=== PATIENT | male | born 1985 | race Caucasian/White ===

== ENCOUNTER 2018-12-05 14:51 | Emergency (ER) | payer OTHER ==
--- NOTE | 2018-12-05 15:05 | ERPHSYRPT ---
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 SUSTAINED SMALL INNER LIP LACERATION AND 1.5 CM LOWER LIP LAC OUTER. LAST TDAP? NO LOC. NO CP/SOB/N/V/FEVER/CHILLS/ DYSURIA/HEMATURIA PMHX DENIES PSHX DENIES MEDS REVIEWED ALL NKDA + TOB CHEW + ETOH OCC DENIES ILLICITS FHX NON CONTRIB EMPLOYED Allergies/Adverse Reactions: No Known Drug Allergies Allergy (Unverified 12/05/18 15:12) Home Medications: No Reportable Medications [No Reported Medications] 12/05/18 [History] - Review of Systems Constitutional: No Symptoms, No Fever, No Chills, No Fatigue, No Lethargy, No Malaise, No Night Sweats, No Weakness, No Weight Loss Eyes: No Symptoms, No Discharge, No Eye Pain, No Eye Redness, No Itchy, No Photophobia, No Tearing, No Vision Changes, No Double Vision, No Foreign Body Sensation Ears, Nose, & Throat: No Symptoms, No Ear Pain, No Ear Discharge, No Hearing Changes, No Tinnitus, No Nose Congestion, No Nose Discharge, No Epistaxis, No Mouth Pain, No Mouth Swelling, No Throat Pain, No Throat Swelling, No Hoarse, No Painful Swallowing, No Stridor Respiratory: No Symptoms, No Cough, No Cyanosis, No Dyspnea, No Dyspnea on Exertion (CRUZ), No Stridor, No Wheezing Cardiac: No Symptoms, No Chest Pain, No Edema, No Palpitations, No Syncope, No Orthopnea Abdominal/Gastrointestinal: No Symptoms, No Abdominal Pain, No Nausea, No Vomiting, No Diarrhea, No Constipation, No Hematemesis, No Hematochezia, No Melena, No Dysphagia, No Appetite Changes Genitourinary Symptoms: No Symptoms, No Dysuria, No Frequency, No Hematuria, No Hesitancy, No Incontinence, No Urgency, No Urinary Retention, No Flank Pain Musculoskeletal: No Symptoms, No Arthralgias, No Back Pain, No Neck Pain, No Deformity, No Fall, No Injury, No Joint Redness, No Joint Pain, No Joint Swelling, No Myalgias Skin: No Symptoms, Other (LACERATION), No Cellulitis, No Decubiti, No Induration , No Pruritis, No Rash, No Skin Lesions, No Dryness Neurological: No Symptoms, No Dizziness, No Focal Weakness, No Gait Changes, No Headache, No Irritability, No Lethargy, No Paralysis, No Parasthesia, No Seizure , No Sensory Changes, No Speech Changes, No Tics, No Tremors, No Vertigo Psychological: No Symptoms, No Alcohol Abuse, No Drug Abuse, No Anxiety, No Depression, No Suicidal Ideations, No Homicidal Ideations, No Emotional Lability , No Hallucinations, No Memory Loss, No Mood Changes Endocrine: No Symptoms, No Polyuria, No Polydipsia, No Hair Changes, No Cold Intolerance, No Excessive Sweating, No Goiter Hematologic/Lymphatic: No Symptoms, No Anemia, No Blood Clots, No Easy Bleeding , No Gum Bleeding, No Easy Bruising, No Adenopathy Immunological/Allergic: No Symptoms All Other Systems: Reviewed and Negative - Physical Exam General Appearance: no apparent distress, alert Eye Exam: PERRL/EOMI, eyes nml inspection, other (fundi normal adelaide), No scleral icterus, No pale conjunctivae, No photophobia, No EOM palsy/anisocoria Ears, Nose, Throat Exam: normal ENT inspection, TMs normal, pharynx normal, TM abnormal (L), other (uvula midline, floor of mouth soft LOWER LIP 0.25 CM INNER LAC, OUTER 1.5 CM LAC SUPERFICIAL LOWER LIP DOES NOT CROSS ABY BORDER), No moist mucous membranes, No dry mucous membranes, No TM abnormal (R), No pharyngeal erythema, No tonsillar exudate Neck Exam: normal inspection, non-tender, supple, full range of motion, No meningismus, No mass, No Brudzinski, No Kernig's, No carotid bruit, No JVD, No limited range of motion, No lymphadenopathy, No midline tenderness, No thyromegaly Respiratory Exam: normal breath sounds, lungs clear, airway intact, No chest tenderness, No respiratory distress, No diminished breath sounds, No accessory muscle use, No prolonged expirations, No crackles/rales, No rhonchi, No wheezing , No stridor, No pleural rub Cardiovascular Exam: regular rate/rhythm, normal heart sounds, normal peripheral pulses, capillary refill <2 sec, No murmur, No friction rub, No gallop, No tachycardia, No bradycardia, No irregular, No capillary refill 2-3 sec, No capillary refill >3 sec, No edema, No pulse deficit Gastrointestinal/Abdomen Exam: soft, normal bowel sounds, No tenderness, No distention, No mass, No guarding, No ecchymosis, No pulsatile mass, No rebound, No hernia, No hepatomegaly, No organomegaly, No splenomegaly, No bruit Male Genitalia Exam: normal genitalia Rectal Exam: deferred Back Exam: normal inspection, normal range of motion, other (neg slr adelaide, no sacral anesthesia, dtr 2/4 adelaide patella), No CVA tenderness, No vertebral tenderness, No rash, No decreased range of motion, No muscle spasm, No point tenderness Extremity Exam: normal inspection, normal range of motion, pelvis stable, No amputations, No contusions, No calf tenderness, No deformities, No lacerations, No parasthesia, No paralysis, No inflammation, No joint swelling, No limited range of motion, No pedal edema, No swelling, No tenderness Neurologic Exam: alert, oriented x 3, cooperative, 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, normal mood/affect, nml cerebellar function, nml station & gait, sensation nml, No motor deficits, No sensory deficit, No disoriented, No confusion, No agitation, No uncooperative, No intoxicated appearance, No depressed mood/affect , No motor weakness, No facial droop, No slurred speech, No aphasia, No dysarthria, No abnormal gait, No abnormal cerebellar tests, No abnormal humanities professor II- XII, No EOM palsy Skin Exam: normal color, warm, dry, No rash, No petechiae, No jaundice, No abrasion, No cyanosis, No diaphoresis, No decubitus, No embolic lesions, No ecchymosis, No jaundice, No laceration, No mottled, No pale Lymphatic Exam: No adenopathy SpO2 Interpretation: normal O2 Delivery: Room Air - Course Nursing assessment & vital signs reviewed: Yes - Progress Progress: unchanged Progress Note: 12/05/18 15:13 FINDINGS REVIEWED WITH PT. WILL UPDATE TDAP OFFERED SUTURE LOWER OUTER LIP PT DECLINES UNDERSTANDS RISK/BENEFITS IS AAOX3 COMPETENT TO MAKE A DECISION ALL QUESTIONS ANSWERED TO HIS SATISAFCATION WOUND CARE DW PT Counseled pt/family regarding: drug and/or alcohol abuse, lab results, diagnosis , need for follow-up, rad results, smoking cessation - Departure Departure Disposition: Home Clinical Impression: Laceration of lip Condition: Good Critical Care Time: No Instructions: Wound Care (DC) Additional Instructions: TO ER IF FEVER, REDNESS, SWELLING PUS FROM WOUND KEEP WOUND CLEAN WITH SOAP AND WATER GARGLE CHEW ON OPPOSITE SIDE BACITRACIN TO OUTER WOUND TWICE DAILY WOUND CHECK IN 2 DAYS YOU WERE OFFERED SUTURES FOR LOWER LIP BUT YOU DECLINED AFTER WE DISCUSSED RISKS AND BENEFITS
[2018-12-05] MEDS ORDERED: Adacel Vial IM ONE ×2 (15:10→15:20)
[2018-12-05 15:14] VITALS: PULSE 90; O2SAT 99
[2018-12-05] MEDS ORDERED: BACIGUENT PACKET TP ONE (15:14)
[2018-12-05] MEDS ORDERED: BACIGUENT PACKET ONE (15:19)
== END 2018-12-05 15:34 | disposition home or self-care (01) ==
LOC: ED 14:51
DX: S01.511A Laceration without foreign body of lip, initial encounter (principal); K13.1 Cheek and lip biting
CPT/HCPCS: 90471; 90715; 99283; A9270-GY

== ENCOUNTER 2023-08-20 18:55 | Emergency (ER) | payer BC, OTHER ==
[2023-08-20 19:37] VITALS: TEMP 97.8
--- NOTE | 2023-08-20 19:37 | ERPHSYRPT ---
- History of Present Illness Time Seen by Provider: 08/20/23 19:36 Historian: patient Exam Limitations: no limitations Physician History: This is a 38-year-old white male patient who takes no medications chronically and has no known drug allergies and presents with relatively cash onset of left lower quadrant abdominal pain and left flank pain at 8 AM this morning. T hroughout the day the pain was intermittently worse. Now, the patient has significant pain in the same areas. Patient states the pain is better when he is standing up and moving around. Patient was diaphoretic earlier. He has never had anything like this before. He denies chest pain. He denies shortness of breath. Patient's spouse stated that he did have flulike symptoms approximately 4 to 5 days ago. He has not had any nausea vomiting or diarrhea. Timing/Duration: today Activities at Onset: none Quality: sharpness, stabbing Abdominal Pain Onset Location: LLQ, flank (Left side) Severity of Pain-Max: moderate Severity of Pain-Current: moderate Modifying Factors: Improves With: walking (Improves), other (Sitting worsens) Associated Symptoms: diaphoresis (Here today), No testicular pain Previous symptoms: no prior history, no recent treatment Allergies/Adverse Reactions: No Known Drug Allergies Allergy (Verified 08/20/23 19:37) Hx Tetanus, Diphtheria Vaccination/Date Given: No Hx Influenza Vaccination/Date Given: No Hx Pneumococcal Vaccination/Date Given: No Travel Risk - International Travel Have you traveled outside of the country in past 3 weeks: No - Emerging Infectious Disease Are you exhibiting symptoms associated with any current EIDs: No - Review of Systems Constitutional: No Symptoms Eyes: No Symptoms Ears, Nose, & Throat: No Symptoms Respiratory: No Symptoms Cardiac: No Symptoms Abdominal/Gastrointestinal: Abdominal Pain (Left lower quadrant) Genitourinary Symptoms: Flank Pain (Left flank pain) Musculoskeletal: No Symptoms Skin: No Symptoms Neurological: No Symptoms Psychological: No Symptoms Endocrine: No Symptoms Hematologic/Lymphatic: No Symptoms Immunological/Allergic: No Symptoms All Other Systems: Reviewed and Negative - Past Medical History Pertinent Past Medical History: No - Past Surgical History Past Surgical History: No - Social History Smoking Status: Never smoker Exposure to second hand smoke: No Drug Use: none Patient Lives Alone: No - Nursing Vital Signs Nursing Vital Signs: Initial Vital Signs Temperature 97.8 F 08/20/23 19:20 Respiratory Rate 18 08/20/23 19:20 Blood Pressure 168/126 08/20/23 19:20 O2 Sat by Pulse Oximetry 99 08/20/23 19:20 Pain Scale Pain Intensity 8 - Physical Exam General Appearance: mild distress, alert, anxiety Eye Exam: PERRL/EOMI, eyes nml inspection Ears, Nose, Throat Exam: normal ENT inspection, moist mucous membranes Neck Exam: normal inspection, non-tender, supple, full range of motion Respiratory Exam: normal breath sounds, lungs clear, airway intact, No chest tenderness, No respiratory distress Cardiovascular Exam: regular rate/rhythm, normal heart sounds, normal peripheral pulses Gastrointestinal/Abdomen Exam: soft, normal bowel sounds, tenderness (Mild left lower quadrant), guarding (Mild left lower quadrant to palpation) Rectal Exam: not done Back Exam: normal inspection, normal range of motion, CVA tenderness, No vertebral tenderness Extremity Exam: normal inspection, normal range of motion, pelvis stable Neurologic Exam: alert, oriented x 3, cooperative, 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, nml cerebellar function, nml station & gait, sensation nml Skin Exam: normal color, warm, dry Lymphatic Exam: No adenopathy SpO2 Interpretation: normal O2 Delivery: Room Air - Course Nursing assessment & vital signs reviewed: Yes Ordered Tests: Active Orders 24 hr Category Date Time Status IV Insertion STAT Care 08/20/23 19:39 Active ABDOMEN AND PELVIS W/0 CONTRAS [CT] Stat Exams 08/20/23 19:39 Completed AMYLASE Stat Lab 08/20/23 19:36 Completed CBC W DIFF Stat Lab 08/20/23 19:36 Completed CMP Stat Lab 08/20/23 19:36 Completed LIPASE Stat Lab 08/20/23 19:36 Completed UA W/RFX UR CULTURE Stat Lab 08/20/23 19:35 Completed Medication Summary Discontinued Medications Generic Name Dose Route Start Last Admin Trade Name Freq PRN Reason Stop Dose Admin Hydromorphone HCl 1 mg 08/20/23 19:39 08/20/23 20:02 Hydromorphone 1 Mg/1ml Inj IV 08/20/23 19:40 1 mg STAT ONE Administration Hydromorphone HCl Confirm 08/20/23 19:56 Hydromorphone 1 Mg/1ml Inj Administered 08/20/23 19:57 Dose 1 mg .ROUTE .STK-MED ONE Hydromorphone HCl 1 mg 08/20/23 20:54 08/20/23 21:05 Hydromorphone 1 Mg/1ml Inj IV 08/20/23 20:55 1 mg STAT ONE Administration Hydromorphone HCl Confirm 08/20/23 21:01 Hydromorphone 1 Mg/1ml Inj Administered 08/20/23 21:02 Dose 1 mg .ROUTE .STK-MED ONE Sodium Chloride 1,000 mls @ 999 mls/hr 08/20/23 19:39 08/20/23 19:58 Sodium Chloride 0.9% 1000 Ml IV 08/20/23 20:39 999 mls/hr .Q1H1M STA Administration Sodium Chloride Confirm 08/20/23 19:56 Sodium Chloride 0.9% 1000 Ml Administered 08/20/23 19:57 Dose 1,000 mls @ ud .ROUTE .STK-MED ONE Ketorolac Tromethamine 30 mg 08/20/23 19:39 08/20/23 19:59 Ketorolac Tromethamine 30 Mg/Ml Inj IV 08/20/23 19:40 30 mg STAT ONE Administration Ketorolac Tromethamine Confirm 08/20/23 19:56 Ketorolac Tromethamine 30 Mg/Ml Inj Administered 08/20/23 19:57 Dose 30 mg .ROUTE .STK-MED ONE Ondansetron HCl 4 mg 08/20/23 19:39 08/20/23 20:01 Ondansetron Hcl 4 Mg/2 Ml Vial IV 08/20/23 19:40 4 mg STAT ONE Administration Ondansetron HCl Confirm 08/20/23 19:56 Ondansetron Hcl 4 Mg/2 Ml Vial Administered 08/20/23 19:57 Dose 4 mg .ROUTE .STK-MED ONE Orphenadrine Citrate 60 mg 08/20/23 20:54 08/20/23 21:02 Orphenadrine Citrate 60 Mg/2 Ml Vial IV 08/20/23 20:55 60 mg STAT ONE Administration Orphenadrine Citrate Confirm 08/20/23 21:00 Orphenadrine Citrate 60 Mg/2 Ml Vial Administered 08/20/23 21:01 Dose 60 mg .ROUTE .STK-MED ONE Lab/Rad Data: Laboratory Result Diagrams 08/20/23 19:36 08/20/23 19:36 Laboratory Results 08/20/23 08/20/23 08/20/23 Range/Units 19:36 19:36 19:35 WBC 13.1 H (4.23-9.07) x10^3/uL RBC 5.15 (4.63-6.08) x10^6/uL Hgb 15.3 (13.7-17.5) g/dL Hct 45.0 (40.1-51.0) % MCV 87.4 (79.0-92.2) fL MCH 29.7 (25.7-32.2) pg MCHC 34.0 (32.3-36.5) g/dL RDW 12.8 (11.6-14.4) % Plt Count 230 (163-337) x10^3/uL MPV 11.8 (9.4-12.4) fL Gran % 78.1 H (34.0-67.9) % Immature Gran % (Auto) 0.6 H (0.001-0.429) % Nucleat RBC Rel Count 0.0 (0.00-0.2) % Eos # (Auto) 0.07 (0.04-0.54) x10^3/uL Immature Gran # (Auto) 0.08 H (0.001-0.031) x10^3u/L Absolute Lymphs (auto) 1.56 (1.32-3.57) x10^3/uL Absolute Monos (auto) 1.13 H (0.30-0.82) x10^3/uL Absolute Nucleated RBC 0.00 (0.00-0.012) x10^3u/L Lymphocytes % 11.9 L (21.8-53.1) % Monocytes % 8.6 (5.3-12.2) % Eosinophils % 0.5 L (0.8-7.0) % Basophils % 0.3 (0.2-1.2) % Absolute Granulocytes 10.22 H (1.78-5.38) x10^3/uL Basophils # 0.04 (0.01-0.08) x10^3/uL Sodium 143 (135-145) mmol/L Potassium 3.9 (3.5-5.1) mmol/L Chloride 111 H (98-107) mmol/L Carbon Dioxide 22 (22-30) mmol/L Anion Gap 14.1 (5-15) MEQ/L BUN 16 (9-20) mg/dL Creatinine 1.21 (0.66-1.25) mg/dL Estimated GFR 77.6 ML/MIN Glucose 115 H (74-106) mg/dL Calcium 9.9 (8.4-10.2) mg/dL Total Bilirubin 0.80 (0.2-1.3) mg/dL AST 39 (17-59) U/L ALT 90 H (0-50) U/L Alkaline Phosphatase 92 (38-126) U/L Serum Total Protein 8.2 (6.3-8.2) g/dL Albumin 4.6 (3.5-5.0) g/dL Amylase 60 (30-110) U/L Lipase 69 (23-300) U/L Urine Color Yellow (Yellow) Urine Appearance Clear (Clear) Urine pH 5.5 (4.6-8.0) Ur Specific [place] 1.020 (1.005-1.030) Urine Protein Trace A (Negative) Urine Glucose (UA) Negative (Negative) mg/dL Urine Ketones Negative (Negative) Urine Blood Trace (Negative) Urine Nitrite Negative (Negative) Urine Bilirubin Negative (Negative) Urine Urobilinogen 1.0 A (0.2) mg/dL Ur Leukocyte Esterase Negative (Negative) U Hyaline Cast (Auto) NONE SEEN (0-2) /LPF Urine Microscopic RBC 3-5 (0-5) /HPF Urine Microscopic WBC 0-2 (0-5) /HPF Ur Epithelial Cells None Seen (None Seen) /HPF Urine Bacteria None Seen (None Seen) /HPF Urine Culture Reflexed NO (NO) - Progress Progress: improved, pain not gone completely, re-examined Progress Note: 08/20/23 20:34 My medical decision making and the assignment of moderate complexity to this patient's medical issue today is based on review of the patient's past medical history, review of the patient's medication list, history present illness and physical findings on examination. The workup in this patient includes placement of intravenous line, infusion of normal saline solution, CBC, CMP, amylase, lipase, urinalysis, infusion of Dilaudid, Toradol and Zofran intravenously, CT scan of the abdomen pelvis without contrast. Differential diagnosis includes but is not limited to diverticulitis, pancreatitis, ureterolithiasis, pyelonephritis, muscle skeletal pain, other acute intra-abdominal/pelvic abnormality. 08/20/23 21:33 I interpreted the patient's laboratory data results. Based on the patient's laboratory data results, patient does not have acute, emergent findings. CT scan of the abdomen pelvis without contrast was interpreted by the radiologist. The impression states mild left hydroureteronephrosis with a 2.5 m m ureteral calculus at the left vesicoureteral junction. Counseled pt/family regarding: lab results, diagnosis, need for follow-up, rad results Medical Desision Making - Independent Historian Additional History obtained from: Spouse - Diagnostic Testing Diagnostic test were ordered, analyzed, and reviewed by me: Yes Radiological Interpretation: Reviewed by me, Teleradiologist Report - Risk of complications The pt has a mod risk of morbidity or mortality based on: Need for prescription drug management - Departure Departure Disposition: Home Clinical Impression: Left ureteral calculus, Obstructive uropathy Condition: Stable Critical Care Time: No Referrals: KEELY PAULSON, PROCUREMENT OFFICER [Primary Care Provider] - Follow up/PCP as directed Additional Instructions: Drink plenty of fluids. Take ibuprofen 600 mg orally with food 3 times a day for the next 5 days. Take your other prescription medications as prescribed. If your pain worsens or persists, follow-up with urologist of choice. Names and phone numbers provided to you. If your symptoms worsen significantly, follow-up with an emergency department that staffs urologist. You may always come to our emergency department. However, we do not staff urology. Prescriptions: Hydrocodone/APAP 5/325 [[place] 5/325 mg] 1 each PO Q8H PRN PRN #6 tablet MDD 3 PRN Reason: Pain Tamsulosin HCl 0.4 mg [Flomax 0.4 MG] 0.4 mg PO DAILY #7 cap
[2023-08-20 19:48] LABS: Absolute Neutrophil Ct (ANC) 10.22 x10^3/uL (1.78-5.38); BASOPHIL % 0.3 % (0.2-1.2); Basophil (Absolute #) 0.04 x10^3/uL (0.01-0.08); Eosinophil % 0.5 % (0.8-7.0); Eosinophil (Absolute #) 0.07 x10^3/uL (0.04-0.54); Hemoglobin 15.3 g/dL (13.7-17.5); IMMATURE GRAN # 0.08 x10^3u/L (0.001-0.031); IMMATURE GRAN % 0.6 % (0.001-0.429); Lymphocyte (Absolute #) 1.56 x10^3/uL (1.32-3.57); Lymphocytes % 11.9 % (21.8-53.1); Mean Cell Volume 87.4 fL (79.0-92.2); Mean Corpuscular Hemoglobin 29.7 pg (25.7-32.2); Mean Platelet Volume 11.8 fL (9.4-12.4); Monocyte (Absolute #) 1.13 x10^3/uL (0.30-0.82); Monocytes % 8.6 % (5.3-12.2); Neutrophil % 78.1 % (34.0-67.9); Platelet Count 230 x10^3/uL (163-337); Red Blood Count 5.15 x10^6/uL (4.63-6.08); Red Cell Distribution Width 12.8 % (11.6-14.4); White Blood Count 13.1 x10^3/uL (4.23-9.07)
[2023-08-20 19:54] LABS: Appearance Clear (Clear); Bacteria None Seen /HPF (None Seen); Bilirubin Negative (Negative); Blood Trace (Negative); Epithelial Cells None Seen /HPF (None Seen); Glucose, Urine Negative (Negative); Hyaline Casts NONE SEEN /LPF (0-2); Ketones Negative (Negative); Leukocyte Esterase Negative (Negative); Nitrite Negative (Negative); Ph 5.5 (4.6-8.0); Protein,Urine Dip Trace (Negative); WBC 0-2 /HPF (0-5)
[2023-08-20] MEDS ORDERED: Zofran 4 MG/2 ML VIAL ONE (19:56)
[2023-08-20] MEDS ORDERED: Sodium Chloride 0.9% 1000 ML 1,000 ML ONE (19:56)
[2023-08-20] MEDS ORDERED: TORAdol 30 mg Injection ONE (19:56)
[2023-08-20] MEDS ORDERED: Hydromorphone 1 mg/ml Injection ONE ×2 (19:56→21:01)
[2023-08-20] MEDS: Sodium Chloride 0.9% 1000 ML 1,000 ML IV STA (19:58)
[2023-08-20] MEDS: TORAdol 30 mg Injection IV ONE (19:59)
[2023-08-20] MEDS: Zofran 4 MG/2 ML VIAL IV ONE (20:01)
[2023-08-20 20:02] LABS: ALBUMIN 4.6 g/dL (3.5-5.0); ANION GAP 14.1 MEQ/L (5-15); BILIRUBIN,TOTAL 0.8 mg/dL (0.2-1.3); Calcium 9.9 mg/dL (8.4-10.2); Creatinine 1 1.21 mg/dL (0.66-1.25); EST GLOMERULAR FILTRATION RATE 77.6 ML/MIN; Potassium 3.9 mmol/L (3.5-5.1); Total Protein 8.2 g/dL (6.3-8.2)
[2023-08-20 20:02] LABS: ADD URINE CULTURE? NO (NO)
[2023-08-20] MEDS: Hydromorphone 1 mg/ml Injection IV ONE ×2 (20:02→21:05)
[2023-08-20] MEDS ORDERED: Norflex 60 MG/2 ML ONE (21:00)
[2023-08-20] MEDS: Norflex 60 MG/2 ML IV ONE (21:02)
--- NOTE | 2023-08-20 21:25 | XRAY ---
CLINICAL HISTORY: Flank pain COMPARISON: None. TECHNIQUE: A CT scan of the abdomen and pelvis was performed without IV contrast. Coronal and sagittal reconstructive images were also obtained. One of the following dose reduction techniques were utilized for this exam: Automated exposure control, adjustment of the mA and/or kV according to patient size, use of iterative reconstruction. FINDINGS: Limited organ parenchymal evaluation within the limitations of noncontrast study. Sections of the lower thorax show a 6.5 mm pleural-based calcified nodule in the right lower lobe with minimal basal atelectatic changes. Abdomen: The liver measures 20 cm craniocaudal and shows fatty infiltration. The intrahepatic biliary radicals and the bile ducts are normal. The gallbladder is distended. There is no evidence of wall thickening/ pericholecystic collection. The spleen, pancreas, and right adrenal gland appear unremarkable. A well-defined hypodense lesion was seen in the left adrenal measuring 20 x 17 mm, possibly an adenoma. Mild left hydroureteronephrosis due to 2.5 mm calculus at the left vesicoureteric Junction was seen, along with bulky left kidney, perinephric, and periureteric fat stranding. A 4.8 x 4.5 cm left renal cortical cyst is seen at the lower pole. The right kidney appears normal in size and shape. No calculi or hydronephrosis. The ascending colon, the transverse colon, the descending colon, visualized small bowel loops are unremarkable. There is no CT evidence of acute appendicitis. Pelvis: The urinary bladder is unremarkable. The rectosigmoid colon is unremarkable. The prostate appears unremarkable. The lumbar spine shows mild degenerative changes with grade I retrolisthesis of L5 over S1. IMPRESSION: 1. Mild left hydroureteronephrosis due to 2.5 mm calculus at left vesicoureteric Junction, along with bulky left kidney, perinephric, and periureteric fat stranding. 2. Left renal cortical cyst, Bosniak category 1. 3. A left hypodense adrenal lesion, possibly adenoma. 4. Moderate hepatomegaly with fatty infiltration. [facility] ER was called at [phone] at 8:10 PM LINE ORDERING CLINICIAN, and Dr Greenfield was informed about the medical findings on this report Electronically Signed by: Ryanne Pradhan MD. (08/20/2023 21:21:46 EDT)
[2023-08-20 21:34] LABS: INFLUENZA A NEGATIVE (NEGATIVE); INFLUENZA B NEGATIVE (NEGATIVE); RESPIRATORY SYNCTIAL VIRUS NEGATIVE (NEGATIVE); SARS-CoV-2 Xpert Express NEGATIVE (NEGATIVE)
[2023-08-20 21:41] VITALS: BP 181/120; PULSE 89; RESP 16; O2SAT 95
[2023-08-20] MEDS ORDERED: NORCO 5/325 MG ONE (21:43)
[2023-08-20] MEDS ORDERED: Flomax 0.4 MG ONE (21:43)
[2023-08-20] MEDS: Flomax 0.4 MG PO ONE (21:51)
[2023-08-20] MEDS: NORCO 5/325 MG PO ONE (21:52)
== END 2023-08-20 22:05 | disposition home or self-care (01) ==
LOC: ED 18:55
DX: N13.2 Hydronephrosis with renal and ureteral calculous obstruction (principal); R10.32 Left lower quadrant pain; R10.9 Unspecified abdominal pain; Z79.891 Long term (current) use of opiate analgesic
CPT/HCPCS: 0241U; 36000; 36415; 74176; 80053; 81001; 82150; 83690; 85025; 96374; 96375; 96376; 99284; J1170; J1885; J2360; J2405; A9270-GY